=== PATIENT | female | born 1985 | race Caucasian/White ===

== ENCOUNTER → 2016-09-04 | Outpatient (CLI) | payer OTHER ==
[~2016-09-04] MED LIST: ADDE10TA PO; IBUP600 PO; LORTA5 PO; PREN1TAB30
== END ==
LOC: HPND 10:58
PROVIDERS: ATTEND Obstetrics & Gynecology
DX: O43.191 Other malformation of placenta, first trimester (principal); F90.9 Attention-deficit hyperactivity disorder, unspecified type
CPT/HCPCS: 36416; 76813

== ENCOUNTER → 2016-10-16 | Outpatient (CLI) | payer OTHER | LOC: HPND 09:45 | PROVIDERS: ATTEND Obstetrics & Gynecology | DX: O43.192 Other malformation of placenta, second trimester (principal); F90.9 Attention-deficit hyperactivity disorder, unspecified type | CPT/HCPCS: 76811 ==